=== PATIENT | female | born 1985 | race Caucasian/White ===

== ENCOUNTER 2024-02-20 11:32 | Emergency (ER) | payer BC ==
[~2024-02-20] VITALS: Ht 177.8 cm; Wt 77.3 kg
[2024-02-20] MEDS ORDERED: NS 1,000 ML IV ONE ×2 (12:15→14:30)
[2024-02-20] MEDS ORDERED: Ondansetron 4 MG/2 ML VIAL IV ONE (12:15)
[2024-02-20 12:30] LABS: BASO % 0.6 % (0.0-2.0); EOS # 0.1 K/mm3 (0.0-0.7); EOS % 2.6 % (0.0-4.0); GRAN # 3.3 K/mm3 (1.4-6.5); GRAN % 70.8 % (42.2-75.2); HEMATOCRIT 37.1 % (37.0-47.0); HEMOGLOBIN 12.7 g/dl (12.5-16.0); LYMPH # 0.7 K/mm3 (1.2-3.4); LYMPH % 14.2 % (20.0-51.0); MEAN CELL VOLUME 91 fl (80.0-100.0); MEAN CORPUSCULAR HEMOGLOBIN 31 pg (27-31); MEAN CORPUSCULAR HGB CONC 34 g/dl (33.0-37.0); MEAN PLATELET VOLUME 10.2 fl (7.4-10.4); MONO # 0.5 K/mm3 (0.1-0.6); MONO % 11.6 % (1.7-9.3); PLATELET COUNT 153 K/mm3 (130-400); RED BLOOD COUNT 4.07 M/mm3 (4.10-5.30); REDCELL DISTRIBUTION WIDTH-CV 11.4 % (11.5-14.5)
[2024-02-20] MEDS ORDERED: Ketorolac 15 MG/ML VIAL IV ONE (12:30)
[2024-02-20 12:36] LABS: ALBUMIN 3.3 g/dL (3.5-5.0); BILIRUBIN,TOTAL 0.4 mg/dL (0.2-1.2); CALCIUM 9.3 mg/dL (8.4-10.2); CREATININE, serum 0.73 mg/dL (0.57-1.11); POTASSIUM 3.4 mEq/L (3.5-4.5)
[2024-02-20 13:11] LABS: URINE APPEARANCE Clear (CLEAR/HAZY); URINE BLOOD Negative (NEGATIVE); URINE COLOR YELLOW (YELLOW); URINE GLUCOSE Negative (NEGATIVE); URINE KETONE TRACE (NEGATIVE); URINE NITRATE Negative (NEGATIVE); URINE PROTEIN(semi-quant) 1+ (NEGATIVE)
[2024-02-20 13:30] LABS: COLLECTION METHOD CLEAN CATCH
[2024-02-20] MEDS ORDERED: LEVAQUIN 750MG750 M1 PO (14:27)
[2024-02-20] MEDS ORDERED: cefTRIAXone 1 G in Water For Injection,Sterile 10 ML IV ONE (14:30)
[2024-02-20 15:40] VITALS: BP 126/74; PULSE 76; TEMP 97.7
== END 2024-02-20 15:44 | disposition home or self-care (01) ==
LOC: COL.ER 11:32
PROVIDERS: Physician Assistant
DX: R50.9 Fever, unspecified (principal); R11.0 Nausea
CPT/HCPCS: J0696; J1885; J2405; J7030